=== PATIENT | male | born 1950 | race Two or more races ===

== ENCOUNTER 2021-06-07 16:49 | Emergency (ER) | payer OTHER ==
[2021-06-07 17:08] VITALS: BP 124/80; PULSE 78; TEMP 97.7
[2021-06-07] MEDS ORDERED: IBUPROFEN 600 MG TABLET (FP) PO ONE ×2 (17:26→17:28)
[2021-06-07] MEDS ORDERED: CYCLOBENZAPRINE HCL 10 MG TABLET (FP) PO ONE (17:26)
[2021-06-07] MEDS ORDERED: CYCLOBENZAPRINE HCL 10 MG TABLET (FP) ONE (17:28)
== END 2021-06-07 18:36 | disposition home or self-care (01) ==
LOC: JERFT 16:49
DX: S29.012A Strain of muscle and tendon of back wall of thorax, initial encounter (principal); V03.10XA Pedestrian on foot injured in collision with car, pick-up truck or van in traffic accident, initial encounter
CPT/HCPCS: 72070-TC-FY; 72100-TC-FY; 99283-25